=== PATIENT | male | born 1950 | race African-American/Black ===

== ENCOUNTER 2019-06-13 07:40 | Emergency (ER) | payer OTHER, MEDICAID ==
[2019-06-13] MEDS ORDERED: TUBERCULIN,PURIF.PROT.DERIV. 5 TU/0.1 ML TEST 1 ML VIAL ID ONE (08:23)
[2019-06-13 09:12] LABS: ABSOLUTE MONOCYTES (AUTO) 0.6 10^3/uL (0.1-1.4); ABSOLUTE NEUT (AUTO) 6.6 10^3/uL (1.7-8.2); BASOPHILS % (AUTO) 0.2 % (0-2); EOSINOPHILS % (AUTO) 0.1 % (0-6); HEMATOCRIT 29.7 % (37.9-51.0); HEMOGLOBIN 9.8 g/dL (13.5-17.0); MEAN CORPUSCULAR HEMOGLOBIN 30.6 pg (27.0-33.4); MEAN CORPUSCULAR HGB CONC 33.2 g/dL (32.0-36.0); MEAN CORPUSCULAR VOLUME 92 fl (80-97); MONOCYTES % (AUTO) 7.1 % (3-13); RED BLOOD COUNT 3.21 10^6/uL (4.35-5.55); RED CELL DISTRIBUTION WIDTH 19.4 % (11.5-14.0); SEGMENTED NEUTROPHILS % (AUTO) 80.6 % (42-78); TOTAL CELLS COUNTED % (AUTO) 100 %; WHITE BLOOD COUNT 8.2 10^3/uL (4.0-10.5)
--- NOTE | 2019-06-13 09:13 | ER Document Report ---
ED General - General Chief Complaint: Shortness Of Breath Stated Complaint: SHORTNESS OF BREATH Time Seen by Provider: 06/13/19 09:02 Information source: Patient, Relative TRAVEL OUTSIDE OF THE [place] IN LAST 30 DAYS: No - HPI Notes: Patient complains of mild shortness of breath. He was here yesterday in the emergency room and was told to come back today for dialysis. He is a chronic dialysis patient visiting from out of town family for the holidays. He normally is dialyzed on Tuesday. He also has a port on his chest for chemotherapy for metastatic bone cancer. No other complaints. No chest pain or shortness of breath. No rashes. No fevers or chills. Family is at the bedside. - Related Data Allergies/Adverse Reactions: hydroxyzine [From Vistaril] Allergy (Verified 06/12/19 14:09) iodine Allergy (Verified 06/12/19 14:09) meperidine [From Demerol] Allergy (Verified 06/12/19 14:09) Past Medical History - Social History Smoking Status: Current Every Day Smoker Chew tobacco use (# tins/day): No Frequency of alcohol use: None Drug Abuse: None Family History: Reviewed & Not Pertinent - Cerner Patient has suicidal ideation: No Patient has homicidal ideation: No - Past Medical History Cardiac Medical History: Reports: Hx Hypertension Pulmonary Medical History: Reports: Hx COPD Renal/ Medical History: Reports: Hx End Stage Renal Disease Malignancy Medical History: Reports Hx Bone Cancer Musculoskeletal Medical History: Reports Hx Arthritis Review of Systems - Review of Systems Constitutional: denies: Chills, Fever Cardiovascular: denies: Chest pain, Palpitations -: Yes All other systems reviewed and negative Physical Exam - Vital signs Vitals: Resp Pulse Ox 17 99 06/13/19 08:57 06/13/19 08:57 Interpretation: Normal - General General appearance: Appears well, Alert - HEENT Head: Normocephalic, Atraumatic Eyes: Normal Pupils: PERRL - Respiratory Respiratory status: No respiratory distress Chest status: Nontender Breath sounds: Normal Chest palpation: Normal - Cardiovascular Rhythm: Regular Heart sounds: Normal auscultation Murmur: No Notes: Normal intact port right upper sternal border - Abdominal Inspection: Normal Distension: No distension Bowel sounds: Normal Tenderness: Nontender Organomegaly: No organomegaly - Back Back: Normal, Nontender - Extremities General upper extremity: Normal inspection, Nontender, Normal color, Normal ROM, Normal temperature General lower extremity: Normal inspection, Nontender, Normal color, Normal ROM, Normal temperature, Normal weight bearing. No: Elias's sign Notes: Positive thrill right upper extremity consistent with fistula. - Neurological Neuro grossly intact: Yes Cognition: Normal Orientation: AAOx4 Errol Coma Scale Eye Opening: Spontaneous [place] Coma Scale Verbal: Oriented Errol Coma Scale Motor: Obeys Commands [place] Coma Scale Total: 15 Speech: Normal Motor strength normal: LUE, RUE, LLE, RLE Sensory: Normal - Psychological Associated symptoms: Normal affect, Normal mood - Skin Skin Temperature: Warm Skin Moisture: Dry Skin Color: Normal Course - Re-evaluation Re-evalutation: 06/13/19 09:26 EKG per me shows normal sinus rhythm at a rate of 67 with a prolonged QT C of 516. Positive artifact. Compared to EKG from yesterday. 06/13/19 10:46 Labs reviewed. I discussed the case in detail with Automotive Services Manager Dr. Jo, who will arrange the patient to be dialyzed now. Pt stable. 06/13/19 10:47 - Vital Signs Vital signs: Temp Pulse Resp BP Pulse Ox 17 140/73 H 100 06/13/19 12:00 06/13/19 11:01 06/13/19 12:00 - Laboratory Result Diagrams: 06/13/19 09:01 06/13/19 09:01 Laboratory results interpreted by me: 06/13/19 06/13/19 09:01 09:01 RBC 3.21 L Hgb 9.8 L Hct 29.7 L RDW 19.4 H Plt Count 76 L Lymph % (Auto) 12.0 L Seg Neutrophils % 80.6 H Sodium 136.1 L BUN 65 H Creatinine 7.26 H Est GFR ( Amer) 9 L Est GFR (MDRD) Non-Af 7 L Glucose 374 H Calcium 6.4 L* Total Protein 6.2 L Discharge - Discharge Clinical Impression: Metastatic bone cancer Chronic renal failure Qualifiers: Chronic kidney disease stage: unspecified stage Qualified Code(s): N18.9 - Chronic kidney disease, unspecified Condition: Stable Disposition: HOME, SELF-CARE Instructions: Kidney Failure ([facility]) Additional Instructions: Return at once if worse or new symptoms. See your doctor tomorrow for recheck. Go for dialysis in 2 days.
[2019-06-13 09:34] LABS: PLATELET COUNT 76 10^3/uL (150-450)
[2019-06-13 09:50] LABS: ALBUMIN 3.5 g/dL (3.5-5.0); ALKALINE PHOSPHATASE 61 U/L (38-126); ANION GAP 14 (5-19); ASPARTATE AMINO TRANSFERASE 24 U/L (17-59); BILIRUBIN,DIRECT 0.4 mg/dL (0.0-0.4); BILIRUBIN,TOTAL 0.5 mg/dL (0.2-1.3); BLOOD UREA NITROGEN 65 mg/dL (7-20); CARBON DIOXIDE 22 mmol/L (22-30); CHLORIDE 100 mmol/L (98-107); GLUCOSE 374 mg/dL (75-110); POTASSIUM 4.3 mmol/L (3.6-5.0); TOTAL PROTEIN 6.2 g/dL (6.3-8.2)
[2019-06-13 09:59] LABS: CALCIUM 6.4 mg/dL (8.4-10.2)
[2019-06-13] MEDS ORDERED: EPOETIN ALFA-EPBX 2,000 UNIT, EPOETIN ALFA-EPBX 3,000 UNIT in SYRINGE, DISPOSABLE, 1 EACH IV PRN (10:58)
[2019-06-13] MEDS ORDERED: NORMAL SALINE 1000 ML 1,000 ML IV PRN (10:58)
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
[2019-06-13 18:29] VITALS: BP 162/76
--- NOTE | 2019-06-13 20:03 | EKG REPORT ---
SEVERITY:- ABNORMAL ECG - SINUS RHYTHM PROLONGED QT INTERVAL : Confirmed by: Siria Griffin MD 13-Jun-2019 20:02:47
[2019-06-15 04:36] LABS: HEPATITS B SURFACE ANTIGEN Negative (Negative)
[2019-06-15 08:07] LABS: HEPATITIS C VIRUS ANTIBODY >11.0 s/co ratio (0.0-0.9)
== END 2019-06-13 18:56 | disposition home or self-care (01) ==
LOC: ER 07:40
DX: I12.0 Hypertensive chronic kidney disease with stage 5 chronic kidney disease or end stage renal disease (principal); N18.6 End stage renal disease; Z99.2 Dependence on renal dialysis; C79.51 Secondary malignant neoplasm of bone; Z79.899 Other long term (current) drug therapy; J44.9 Chronic obstructive pulmonary disease, unspecified; F17.200 Nicotine dependence, unspecified, uncomplicated; Z88.8 Allergy status to other drugs, medicaments and biological substances; Z88.6 Allergy status to analgesic agent; Z88.5 Allergy status to narcotic agent
CPT/HCPCS: 93005; 36591; 99285; 36415; 85025; 80053; 80074; 93010; J3490 ×2; Q5105 ×2; J1642

== ENCOUNTER 2019-06-15 05:56 | Emergency (ER) | payer OTHER, MEDICAID ==
[2019-06-15 10:26] LABS: ABSOLUTE EOSINOPHILS # (AUTO) 0.2 10^3/uL (0.0-0.6); ABSOLUTE LYMPHOCYTES (AUTO) 1.6 10^3/uL (0.5-4.7); ABSOLUTE MONOCYTES (AUTO) 0.6 10^3/uL (0.1-1.4); ABSOLUTE NEUT (AUTO) 3.1 10^3/uL (1.7-8.2); BASOPHILS % (AUTO) 0.6 % (0-2); EOSINOPHILS % (AUTO) 3.7 % (0-6); MEAN CORPUSCULAR HEMOGLOBIN 31.3 pg (27.0-33.4); MEAN CORPUSCULAR HGB CONC 34.5 g/dL (32.0-36.0); MEAN CORPUSCULAR VOLUME 91 fl (80-97); MONOCYTES % (AUTO) 10.3 % (3-13); RED CELL DISTRIBUTION WIDTH 18.8 % (11.5-14.0); SEGMENTED NEUTROPHILS % (AUTO) 56.4 % (42-78); TOTAL CELLS COUNTED % (AUTO) 100 %; WHITE BLOOD COUNT 5.5 10^3/uL (4.0-10.5)
[2019-06-15 10:42] LABS: ALBUMIN 3.3 g/dL (3.5-5.0); ALKALINE PHOSPHATASE 64 U/L (38-126); ANION GAP 15 (5-19); ASPARTATE AMINO TRANSFERASE 53 U/L (17-59); BILIRUBIN,DIRECT 0.4 mg/dL (0.0-0.4); BILIRUBIN,TOTAL 0.7 mg/dL (0.2-1.3); BLOOD UREA NITROGEN 49 mg/dL (7-20); CARBON DIOXIDE 24 mmol/L (22-30); CHLORIDE 99 mmol/L (98-107); GLUCOSE 243 mg/dL (75-110); POTASSIUM 4.2 mmol/L (3.6-5.0); TOTAL PROTEIN 6.1 g/dL (6.3-8.2)
[2019-06-15 10:48] LABS: PLATELET COUNT 78 10^3/uL (150-450)
[2019-06-15 11:01] LABS: CALCIUM 6.7 mg/dL (8.4-10.2)
[2019-06-15] MEDS ORDERED: EPOETIN ALFA-EPBX 2,000 UNIT, EPOETIN ALFA-EPBX 3,000 UNIT in SYRINGE, DISPOSABLE, 1 EACH IV PRN (11:36)
[2019-06-15] MEDS ORDERED: NORMAL SALINE 1000 ML 1,000 ML IV PRN (11:36)
--- NOTE | 2019-06-15 11:42 | ER Document Report ---
ED General - General Chief Complaint: Other Stated Complaint: KIDNEY FAILURE Time Seen by Provider: 06/15/19 09:14 Information source: Patient Notes: Patient Damián presents for mild shortness of breath and request for dialysis. He is normally dialyzed Tuesday. His last dialysis was here 2 days ago. He was told by the returned case inspector here Dr. Jo to return today for dialysis before he returns home. He has no other complaints. His dialysis site is the right upper extremity. No rashes. TRAVEL OUTSIDE OF THE [place] IN LAST 30 DAYS: No - Related Data Allergies/Adverse Reactions: hydroxyzine [From Vistaril] Allergy (Verified 06/12/19 14:09) iodine Allergy (Verified 06/12/19 14:09) meperidine [From Demerol] Allergy (Verified 06/12/19 14:09) Past Medical History - Social History Smoking Status: Current Every Day Smoker Family History: Reviewed & Not Pertinent - Cerner Patient has suicidal ideation: No Patient has homicidal ideation: No - Past Medical History Cardiac Medical History: Reports: Hx Coronary Artery Disease - Patient unsure if he has had stent placed, Hx Heart Attack - At 24 years old, Hx Hypertension Pulmonary Medical History: Reports: Hx COPD Endocrine Medical History: Reports: Hx Diabetes Mellitus Type 2 Renal/ Medical History: Reports: Hx End Stage Renal Disease Malignancy Medical History: Reports Hx Bone Cancer Musculoskeletal Medical History: Reports Hx Arthritis Past Surgical History: Reports: Other - Small bowel resection for SBO, partial pancreatectomy Review of Systems - Review of Systems Constitutional: denies: Chills, Fever Cardiovascular: denies: Chest pain, Palpitations -: Yes All other systems reviewed and negative Physical Exam - Vital signs Vitals: Temp Pulse Resp BP Pulse Ox 97.8 F 67 17 139/62 H 97 06/15/19 06:46 06/15/19 06:46 06/15/19 06:46 06/15/19 06:46 06/15/19 06:46 Interpretation: Normal - General General appearance: Appears well, Alert - HEENT Head: Normocephalic, Atraumatic Eyes: Normal Pupils: PERRL - Respiratory Respiratory status: No respiratory distress Chest status: Nontender Breath sounds: Normal Chest palpation: Normal - Cardiovascular Rhythm: Regular Heart sounds: Normal auscultation Murmur: No - Abdominal Inspection: Normal Distension: No distension Bowel sounds: Normal Tenderness: Nontender Organomegaly: No organomegaly - Back Back: Normal, Nontender - Extremities General upper extremity: Normal inspection - Positive thrill right upper extremity, Nontender, Normal color, Normal ROM, Normal temperature General lower extremity: Normal inspection, Nontender, Normal color, Normal ROM, Normal temperature, Normal weight bearing. No: Elias's sign - Neurological Neuro grossly intact: Yes Cognition: Normal Orientation: AAOx4 Errol Coma Scale Eye Opening: Spontaneous [place] Coma Scale Verbal: Oriented [place] Coma Scale Motor: Obeys Commands Errol Coma Scale Total: 15 Speech: Normal Motor strength normal: LUE, RUE, LLE, RLE Sensory: Normal - Psychological Associated symptoms: Normal affect, Normal mood - Skin Skin Temperature: Warm Skin Moisture: Dry Skin Color: Normal Course - Re-evaluation Re-evalutation: 06/15/19 11:39 Labs reviewed. Project Facilitator Dr. Jo has been consulted and patient has been transferred up to 4 W. for dialysis. Patient is stable. - Vital Signs Vital signs: Temp Pulse Resp BP Pulse Ox 98.6 F 63 17 128/62 H 96 06/15/19 10:09 06/15/19 10:09 06/15/19 06:46 06/15/19 10:09 06/15/19 10:09 - Laboratory Result Diagrams: 06/15/19 09:55 06/15/19 09:55 Laboratory results interpreted by me: 06/15/19 06/15/19 09:55 09:55 RBC 3.20 L Hgb 10.0 L Hct 29.0 L RDW 18.8 H Plt Count 78 L BUN 49 H Creatinine 6.17 H Est GFR ( Amer) 11 L Est GFR (MDRD) Non-Af 9 L Glucose 243 H Calcium 6.7 L* Total Protein 6.1 L Albumin 3.3 L Discharge - Discharge Clinical Impression: Chronic renal failure Qualifiers: Chronic kidney disease stage: unspecified stage Qualified Code(s): N18.9 - Chronic kidney disease, unspecified Dyspnea Qualifiers: Dyspnea type: unspecified Qualified Code(s): R06.00 - Dyspnea, unspecified Condition: Stable Disposition: HOME, SELF-CARE Instructions: Kidney Failure ([facility]) Additional Instructions: Return at once if worse or new symptoms. See your doctor tomorrow for recheck.
--- NOTE | 2019-06-15 13:57 | PDOC CONSULTATION ---
Consultation Consult Date: 06/15/19 Provider Consulted: VICKIE STOCKTON Consult reason:: I was asked to see the patient for hemodialysis in a patient with ESRD. History of Present Illness History of Present Illness: SHERWIN SWAN is a 69 year old male with history of ESRD from [place] who was not able to arrange dialysis done here due to financial constraints. He also has hypertension, diabetes mellitus, coronary artery disease and bone cancer on chemotherapy. He was here 2 days ago, Tuesday with shortness of breath and we did dialysis on him. Since he is unable to do dialysis on outpatient dialysis units here in [place] I just suggested to him to just come here today so we can receive dialysis prior to him driving back home to [place] on Tuesday. Currently the patient is feeling fine and states that his breathing has been better. He has no other complaints otherwise. I am seeing hemodialysis this afternoon. He is tolerating dialysis well without any problems. He is being monitored throughout dialysis treatment. 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: Nephropathy Renal/ Medical History: Reports: End Stage Renal Disease Malignancy Medical History: Reports: Bone Cancer - On chemotherapy GI Medical History: Reports: Other - History of small bowel obstruction from eating pigs feet Musculoskeltal Medical History: Reports: Arthritis Hematology Medical History: Reports Anemia of Chronic Kidney Disease Past Surgical History Past Surgical History: Reports: Dialysis Access Surgery AVF, Other - Small bowel resection for SBO, partial pancreatectomy Social History Information Source: Patient Smoking Status: Current Every Day Smoker - Since 17 years old, previously 2 packs/day Electronic Cigarette use?: No Frequency of Alcohol Use: None Hx Recreational Drug Use: No Hx Prescription Drug Abuse: No Family History Family History: CAD - Mother, End Stage Renal Disease - Daughter, Parental Family History Reviewed: Yes Children Family History Reviewed: Yes Sibling(s) Family History Reviewed.: Yes Medication/Allergy Home Medications: Amlodipine Besylate [Norvasc 10 mg Tablet] 10 mg PO DAILY 06/12/19 Atorvastatin Calcium [Lipitor 40 mg Tablet] 40 mg PO QHS 06/12/19 Carvedilol 25 mg PO BID 06/12/19 Clopidogrel Bisulfate [Plavix] 75 mg PO DAILY 06/12/19 Dexamethasone [Decadron] 20 mg PO Q7D 06/12/19 Ferrous Sulfate [Feosol] 325 mg PO BID 06/12/19 Hydralazine HCl [Apresoline 50 mg Tablet] 50 mg PO TID 06/12/19 Lenalidomide [Revlimid] 15 mg PO MOWEFR 06/12/19 Lipase/Protease/Amylase [Creon Dr 24,000 Units Capsule] 1 cap PO TID 06/12/19 Pregabalin [Lyrica 50 Mg Capsule] 50 mg PO TID 06/12/19 Sevelamer Carbonate [Renvela] 800 mg PO TID 06/12/19 Temazepam 30 mg PO QHS 06/12/19 Allergies/Adverse Reactions: hydroxyzine [From Vistaril] Allergy (Verified 06/12/19 14:09) iodine Allergy (Verified 06/12/19 14:09) meperidine [From Demerol] Allergy (Verified 06/12/19 14:09) Review of Systems All systems: reviewed and no additional remarkable complaints except as stated Review of Systems: Constitutional: ABSENT: chills, fatigue, fever(s), headache(s), weight gain, weight loss Eyes: ABSENT: visual disturbances Ears: ABSENT: hearing changes Cardiovascular: ABSENT: chest pain, dyspnea on exertion, edema, orthropnea, palpitations Respiratory: ABSENT: cough, dyspnea, hemoptysis Gastrointestinal: ABSENT: abdominal pain, constipation, diarrhea, hematemesis, hematochezia, nausea, vomiting Genitourinary: ABSENT: dysuria, hematuria Musculoskeletal: ABSENT: joint swelling Integumentary: ABSENT: rash, wounds Neurological: ABSENT: abnormal gait, abnormal speech, confusion, dizziness, foca l weakness, numbness, syncope Psychiatric: ABSENT: anxiety, depression Endocrine: ABSENT: cold intolerance, heat intolerance, polydipsia, polyuria Hematologic/Lymphatic: ABSENT: easy bleeding, easy bruising, lymphadenopathy Physical Exam Vital Signs: Temp Pulse Resp BP Pulse Ox 98.6 F 63 17 128/62 H 96 06/15/19 10:09 06/15/19 10:09 06/15/19 06:46 06/15/19 10:09 06/15/19 10:09 Intake & Output 06/14/19 06/15/19 06/16/19 06:59 06:59 06:59 Weight 68.7 kg Vitals during dialysis: Blood pressure 168/79, heart rate of 58, blood flow rate of 450 mL/min and dialysate flow rate of 800 mL/min. Exam: General appearance: No acute distress, cooperative, well-developed, well-n ourished Head exam: PRESENT: atraumatic, normocephalic Eye exam: PRESENT: Conjunctiva [place], EOMI, PERRLA. ABSENT: conjunctival injection, scleral icterus Mouth exam: PRESENT: moist, neck supple, tongue midline Neck exam: PRESENT: full ROM. ABSENT: carotid bruit, JVD, lymphadenopathy, thyromegaly Respiratory exam: PRESENT: clear to auscultation bilaterally. ABSENT: rales, rhonchi, stridor, wheezes Cardiovascular exam: PRESENT: RRR, +S1, +S2. ABSENT: systolic murmur Pulses: PRESENT: normal radial pulses, normal dorsalis pedis pulses GI/Abdominal exam: PRESENT: normal bowel sounds, soft. ABSENT: guarding, mass, tenderness Rectal exam: Deferred Extremities exam: PRESENT: full ROM. ABSENT: calf tenderness, pedal edema Musculoskeletal: PRESENT: full ROM. ABSENT: deformity Neurological exam: PRESENT: alert, Awake, Oriented to person, Oriented to place, Oriented to time, reflexes normal, CN II-XII grossly intact. ABSENT: motor sensory deficit Psychiatric exam: PRESENT: appropriate affect, normal mood. ABSENT: homicidal ideation, suicidal ideation Skin exam: PRESENT: intact, dry, warm. ABSENT: rash Results Laboratory Results: 06/15/19 09:55 06/15/19 09:55 06/15/19 06/15/19 09:55 09:55 WBC 5.5 RBC 3.20 L Hgb 10.0 L Hct 29.0 L MCV 91 MCH 31.3 MCHC 34.5 RDW 18.8 H Plt Count 78 L Seg Neutrophils % 56.4 Sodium 138.1 Potassium 4.2 Chloride 99 Carbon Dioxide 24 Anion Gap 15 BUN 49 H Creatinine 6.17 H Est GFR ( Amer) 11 L Glucose 243 H Calcium 6.7 L* Total Bilirubin 0.7 AST 53 Alkaline Phosphatase 64 Total Protein 6.1 L Albumin 3.3 L Assessment & Plan - Diagnosis (1) ESRD needing dialysis Is this a current diagnosis for this admission?: Yes Plan: We will do dialysis today for 3 hours, using the patient's AV fistula, with 2 potassium bath/ 3Calcium, blood flow rate of 450 mL per minute, dialysate flow rate of 800 mL per minute, ultrafiltration 2 to 3 L as tolerated, no heparin and Procrit with 5000 units during dialysis intravenously. Patient is currently being monitored throughout dialysis treatment. We will adjust treatment accordingly. (2) Anemia in chronic kidney disease (CKD) Is this a current diagnosis for this admission?: Yes Plan: We will give Retacrit 5000 units IV during dialysis. (3) Hypocalcemia Is this a current diagnosis for this admission?: Yes Plan: We will use 3 calcium bath during dialysis today. (4) Hypertension Is this a current diagnosis for this admission?: Yes (5) Diabetes mellitus type 2 in nonobese Is this a current diagnosis for this admission?: Yes - Notes Notes: From nephrology standpoint, as long as the patient remained stable after dialysis, he may be able to be discharged home after dialysis today. - Time Time Spent: 50 to 70 Minutes
[2019-06-15 14:43] VITALS: BP 176/68
== END 2019-06-15 14:45 | disposition home or self-care (01) ==
LOC: ER 05:56
DX: I12.0 Hypertensive chronic kidney disease with stage 5 chronic kidney disease or end stage renal disease (principal); E11.22 Type 2 diabetes mellitus with diabetic chronic kidney disease; N18.6 End stage renal disease; Z99.2 Dependence on renal dialysis; J44.9 Chronic obstructive pulmonary disease, unspecified; R06.02 Shortness of breath; F17.200 Nicotine dependence, unspecified, uncomplicated; I25.10 Atherosclerotic heart disease of native coronary artery without angina pectoris; C41.9 Malignant neoplasm of bone and articular cartilage, unspecified; I25.2 Old myocardial infarction; Z79.899 Other long term (current) drug therapy; Z79.02 Long term (current) use of antithrombotics/antiplatelets; Z88.8 Allergy status to other drugs, medicaments and biological substances; Z88.6 Allergy status to analgesic agent; Z88.5 Allergy status to narcotic agent
CPT/HCPCS: 36591; 99285; 36415; 85025; 80053; J3490; Q5105 ×2; J1642; G0257